=== PATIENT | female | born 1970 | race Caucasian/White ===

== ENCOUNTER 2018-04-17 03:35 | Emergency (ER) | payer OTHER ==
[~2018-04-17] VITALS: Ht 165.1 cm; Wt 82.2 kg
[2018-04-17 03:37] VITALS: BP 177/118
== END 2018-04-17 05:40 | disposition home or self-care (01) ==
LOC: ED 05:34
DX: G89.11 Acute pain due to trauma (principal); M25.512 Pain in left shoulder; M25.532 Pain in left wrist; M25.522 Pain in left elbow; F17.200 Nicotine dependence, unspecified, uncomplicated; X58.XXXA Exposure to other specified factors, initial encounter; Y93.89 Activity, other specified; Y92.89 Other specified places as the place of occurrence of the external cause; Y99.8 Other external cause status
CPT/HCPCS: 99284